=== PATIENT | female | born 1975 | race Caucasian/White ===

== ENCOUNTER 2016-10-27 18:14 | Emergency (ER) | payer BC ==
[2016-10-27 19:32] VITALS: BP 131/83
--- NOTE | 2016-10-27 19:49 | UC ---
Throat Pain/Nasal Iraj HPI - HPI Summary HPI Summary: 40 yo female with sore throat x 4-5 days no fever 30 wks GERD exposed to strep - History of Current Complaint Chief Complaint: UCGeneralIllness Stated Complaint: SORE THROAT Time Seen by Provider: 10/27/16 19:26 Hx Obtained From: Patient Hx Last Menstrual Period: 02/16/2016 Onset/Duration: Gradual Onset, Lasting Days Severity: Mild Pain Intensity: 3 Pain Scale Used: 0-10 Numeric Associated Signs & Symptoms: Positive: Negative Related History: T & A - Epiglottits Risk Factors Epiglottis Risk Factors: Negative - Allergies/Home Medications Allergies/Adverse Reactions: Allergies Allergy/AdvReac Type Severity Reaction Status Date / Time No Known Allergies Allergy Verified 10/27/16 19:32 Home Medications: Home Medications Cholecalciferol [Vitamin D3] 50,000 unit PO WEEKLY 10/27/16 [History Confirmed 10/27/16] Folic Acid TAB* [Folvite TAB*] 2 mg PO DAILY 10/27/16 [History Confirmed ] Lansoprazole CAP (NF) [Prevacid CAP (NF)] 15 mg PO DAILY 10/27/16 [History Confirmed 10/27/16] Levothyroxine TAB* [Synthroid 25 MCG TAB*] 25 mcg PO 0800 10/27/16 [History Confirmed 10/27/16] PMH/Surg Hx/FS Hx/Imm Hx Previously Healthy: Yes Endocrine History Of: Reports: Thyroid Disease GI/ History Of: Reports: Gastroesophageal Reflux - Surgical History Surgical History: Yes Surgery Procedure, Year, and Place: [id number]. FX JAW REPAIR. APPY. D&C-- 09/2015 - Family History Known Family History: Positive: Cardiac Disease, Hypertension, Diabetes, Respiratory Disease - COPD - Social History Alcohol Use: Rare Substance Use Type: None Smoking Status (MU): Never Smoked Tobacco Review of Systems Constitutional: Negative Skin: Negative Eyes: Negative ENT: Sore Throat Respiratory: Negative Cardiovascular: Negative Gastrointestinal: Negative Genitourinary: Negative Motor: Negative Neurovascular: Negative Musculoskeletal: Negative Neurological: Negative Psychological: Negative All Other Systems Reviewed And Are Negative: Yes Physical Exam Triage Information Reviewed: Yes Appearance: Well-Appearing, No Pain Distress, Well-Nourished Vital Signs: Initial Vital Signs Temp 98.5 F 10/27/16 19:27 Pulse 100 10/27/16 19:27 Resp 18 10/27/16 19:27 BP 131/83 10/27/16 19:27 Pulse Ox 100 10/27/16 19:27 Vital Signs Reviewed: Yes Eyes: Positive: Conjunctiva Clear ENT: Positive: Hearing grossly normal, Pharyngeal erythema, TMs normal. Negative: Nasal congestion, Nasal drainage, Tonsillar swelling, Tonsillar exudate, Trismus, Muffled/hoarse voice Neck: Positive: Supple, Nontender, Enlarged Nodes @ - ant cerv Respiratory: Positive: Lungs clear, Normal breath sounds, No respiratory distress Cardiovascular: Positive: RRR, No Murmur Abdomen Description: Positive: Nontender - gravid uterus Musculoskeletal: Positive: ROM Intact, No Edema Neurological: Positive: Alert Psychological Exam: Normal Throat Pain/Nasal Course/Dx - Course Course Of Treatment: RS (-) - Differential Dx/Diagnosis Provider Diagnoses: pharyngitis Discharge - Discharge Plan Condition: Stable Disposition: HOME Patient Education Materials: Pharyngitis (ED) Referrals: Mackenzie Wright PA [Primary Care Provider] - Additional Instructions: recheck for new or worsening symptoms recheck in 4-7 days if not better tylenol
== END 2016-10-27 20:31 | disposition home or self-care (01) ==
LOC: UCCORT 18:14
DX: O26.893 Other specified pregnancy related conditions, third trimester (principal); J02.9 Acute pharyngitis, unspecified; Z3A.30 30 weeks gestation of pregnancy; K21.9 Gastro-esophageal reflux disease without esophagitis; E07.9 Disorder of thyroid, unspecified
CPT/HCPCS: 87651; 99211; G0463

== ENCOUNTER 2017-02-13 11:06 | Emergency (ER) | payer BC ==
--- NOTE | 2017-02-13 12:14 | UC ---
Breast Complaint - HPI Summary HPI Summary: left breast pain about 6:00 has been present for 1 day on erythema warmth or fever, is 3 weeks post paryum and has been pumping and feeding baby-- - History of Current Complaint Hx Obtained From: Patient Breast Chief Complaint: Pain, Left Onset/Duration: Started Days Ago - 1, Atraumatic Timing: Constant Breast Pain Aggravating Factors: Nothing Breast Pain Alleviating Factors: Support, Other: - heat Breast Associated Signs/Symptoms: Negative - Allergy/Home Medications Allergies/Adverse Reactions: Allergies Allergy/AdvReac Type Severity Reaction Status Date / Time No Known Allergies Allergy Verified 02/13/17 11:58 Home Medications: Home Medications Ibuprofen TAB* [Motrin TAB* 800 MG] 1 tab Q8HR PRN 02/13/17 [History Confirmed 02/13/17] PMH/Surg Hx/FS Hx/Imm Hx Previously Healthy: No Endocrine History: Hypothyroidism - Surgical History Surgical History: Yes Surgery Procedure, Year, and Place: [id number]. FX JAW REPAIR. APPY. D&C-- 09/2015 - Family History Known Family History: Positive: Cardiac Disease, Hypertension, Diabetes, Respiratory Disease - COPD - Social History Occupation: Unemployed Lives: With Family Alcohol Use: Rare Substance Use Type: None Smoking Status (MU): Never Smoked Tobacco - Immunization History Most Recent Influenza Vaccination: 2015 Most Recent Tetanus Shot: UTD Review of Systems Constitutional: Negative Skin: Negative Eyes: Negative ENT: Negative Respiratory: Negative Cardiovascular: Negative Gastrointestinal: Negative Genitourinary: Negative Motor: Negative Neurovascular: Negative Musculoskeletal: Negative Neurological: Negative Psychological: Negative All Other Systems Reviewed And Are Negative: Yes Physical Exam Triage Information Reviewed: Yes Appearance: Well-Appearing, No Pain Distress, Well-Nourished Vital Signs: Initial Vital Signs Temp 98 F 02/13/17 12:00 Pulse 84 02/13/17 12:00 Resp 18 02/13/17 12:00 BP 119/76 02/13/17 12:00 Pulse Ox 98 02/13/17 12:00 Vital Signs Reviewed: Yes Eye Exam: Normal Eyes: Positive: Conjunctiva Clear ENT Exam: Normal ENT: Positive: Normal ENT inspection, Hearing grossly normal, Pharynx normal, TMs normal. Negative: Nasal congestion, Nasal drainage, Trismus, Muffled/ hoarse voice Dental Exam: Normal Neck exam: Normal Neck: Positive: Supple, Nontender, No Lymphadenopathy Respiratory Exam: Normal Respiratory: Positive: Chest non-tender, Lungs clear, No accessory muscle use Cardiovascular Exam: Normal Cardiovascular: Positive: RRR, Pulses Normal, Brisk Capillary Refill Musculoskeletal Exam: Normal Musculoskeletal: Positive: Strength Intact, ROM Intact, No Edema Neurological Exam: Normal Neurological: Positive: Alert, Muscle Tone Normal Psychological Exam: Normal Psychological: Positive: Normal Response To Family Skin Exam: Normal Breast Pain Course/Dx - Course Course Of Treatment: supportive bra, warm compress, observe for s/s of infection , follow here prn or with pcp or /and jewelry consultant at infants MD office - Differential Diagnoses Differential Diagnosis/HQI/PQRI: Fibrocystic Breast Disease, Mastitis - Diagnoses Provider Diagnoses: Mastitis, left, acute Is Visit Related: No Discharge - Discharge Plan Condition: Stable Disposition: HOME Patient Education Materials: Ibuprofen (By mouth), Mastitis (ED), Warm Compress or Soak (ED) Referrals: Mackenzie Wright PA [Primary Care Provider] - If Needed
[2017-02-13 12:16] VITALS: BP 119/76
== END 2017-02-13 12:31 | disposition home or self-care (01) ==
LOC: UCCORT 11:06
DX: N61.0 Mastitis without abscess (principal); E03.9 Hypothyroidism, unspecified
CPT/HCPCS: 99211; G0463

== ENCOUNTER 2018-07-15 13:29 | Emergency (ER) | payer BC ==
[2018-07-15 13:47] VITALS: BP 121/85
--- NOTE | 2018-07-15 13:58 | UC ---
Lower Extremity/Ankle HPI - HPI Summary HPI Summary: pain and bruising of right leg , lateral side just below the knee x 2 days no known injury , no hx of DVT, no recent travel, no smoking , no BC use - History of Current Complaint Chief Complaint: UCLowerExtremity Stated Complaint: RIGHT LEG SKIN COMPLAINT Time Seen by Provider: 07/15/18 13:46 Hx Obtained From: Patient Hx Last Menstrual Period: 06/28/18 ?: No Onset/Duration: Gradual Onset, Lasting Days - 1, Still Present Severity Initially: Moderate Severity Currently: Moderate Pain Intensity: 4 Aggravating Factor(s): Standing, Ambulation Alleviating Factor(s): Rest Able to Bear Weight: Yes - Risk Factors DVT Risk Factors: Negative - Allergies/Home Medications Allergies/Adverse Reactions: Allergies Allergy/AdvReac Type Severity Reaction Status Date / Time No Known Allergies Allergy Verified 07/15/18 13:37 PMH/Surg Hx/FS Hx/Imm Hx Endocrine History: Hypothyroidism - Surgical History Surgical History: Yes Surgery Procedure, Year, and Place: [id number]. FX JAW REPAIR. APPY. D&C-- 09/2015 - Family History Known Family History: Positive: Cardiac Disease, Hypertension, Diabetes, Respiratory Disease - COPD - Social History Alcohol Use: Rare Substance Use Type: None Smoking Status (MU): Never Smoked Tobacco - Immunization History Most Recent Influenza Vaccination: 2015 Most Recent Tetanus Shot: UTD Review of Systems All Other Systems Reviewed And Are Negative: Yes Constitutional: Positive: Negative Respiratory: Positive: Negative Cardiovascular: Positive: Negative Gastrointestinal: Positive: Negative Musculoskeletal: Negative: Calf Tenderness Is Patient Immunocompromised?: No Physical Exam Triage Information Reviewed: Yes Appearance: Well-Appearing, No Pain Distress, Well-Nourished Vital Signs: Initial Vital Signs Temp 98.4 F 07/15/18 13:38 Pulse 84 07/15/18 13:38 Resp 17 07/15/18 13:38 BP 121/85 07/15/18 13:38 Pulse Ox 99 07/15/18 13:38 Vital Signs Reviewed: Yes Eye Exam: Normal Eyes: Positive: Conjunctiva Clear ENT: Positive: Normal ENT inspection, Hearing grossly normal, Pharynx normal, Pharyngeal erythema Neck: Positive: Supple, Nontender, No Lymphadenopathy Respiratory: Positive: Chest non-tender, Lungs clear, Normal breath sounds Cardiovascular: Positive: RRR, No Murmur, Pulses Normal Musculoskeletal: Positive: Other: - right lower leg : + area of bruising lateral leg just below the knee, + mild swellig, tender to touch Lower Extremity Course/Dx - Differential Dx/Diagnosis Provider Diagnosis: Superficial bruising of lower leg Discharge - Sign-Out/Discharge Documenting (check all that apply): Patient Departure All imaging exams completed and their final reports reviewed: No Studies - Discharge Plan Condition: Stable Disposition: HOME Patient Education Materials: Ecchymosis (ED) Referrals: Mackenzie Wright PA [Primary Care Provider] - If Needed Additional Instructions: no calf tenderness, superficial bruising no DVT risk factors, no recent travel , no BC use, no hx of DVT , not smoker cont. with rest, ice, may take ibuprofen as needed for pain - Billing Disposition and Condition Condition: STABLE Disposition: Home
== END 2018-07-15 13:58 | disposition home or self-care (01) ==
LOC: UCCORT 13:29
DX: S80.11XA Contusion of right lower leg, initial encounter (principal); X58.XXXA Exposure to other specified factors, initial encounter; Y92.9 Unspecified place or not applicable
CPT/HCPCS: 99211; G0463